=== PATIENT | female | born 1935 | race Caucasian/White ===

== ENCOUNTER → 2016-04-24 | Outpatient (CLI) | payer MEDICARE, OTHER | LOC: GMAL 11:05 | PROVIDERS: ATTEND Family Medicine | DX: D51.3 Other dietary vitamin B12 deficiency anemia (principal); D50.8 Other iron deficiency anemias; M10.9 Gout, unspecified ==

== ENCOUNTER → 2016-05-31 | Outpatient (CLI) | payer MEDICARE, OTHER | END | disposition home or self-care (01) | LOC: GMAL 14:22 | PROVIDERS: ATTEND Family Medicine | DX: D51.3 Other dietary vitamin B12 deficiency anemia (principal); D64.9 Anemia, unspecified ==

== ENCOUNTER → 2016-08-31 | Outpatient (CLI) | payer MEDICARE, OTHER ==
--- NOTE | 2016-08-31 13:53 | MAM ---
History: Well woman exam. Date of exam: 08/31/2016 Services provided: Bilateral full field digital screening mammography. CAD, the images were reviewed with R2 computer aided detection. FINDINGS: Glandular tissue is scattered glandular contour. Extensive secretory calcifications bilaterally. Study is compared with 2011 exam. Stable appearance to the glandular tissue. No dominant mass, architectural distortion or new clustered microcalcification. IMPRESSION: Benign exam Recommendation: Routine annual mammography BIRAD CATEGORY: 2 BENIGN Electronically signed by: Michelle Ritter MD 08/31/2016 1:54 PM CDT Workstation: [id number]
== END | disposition home or self-care (01) ==
LOC: MAMMO 09:31
PROVIDERS: ATTEND Family Medicine
DX: Z12.31 Encounter for screening mammogram for malignant neoplasm of breast (principal)

== ENCOUNTER → 2016-09-04 | Outpatient (CLI) | payer MEDICARE, OTHER | END | disposition home or self-care (01) | LOC: GMAL 10:58 | PROVIDERS: ATTEND Family Medicine | DX: D50.8 Other iron deficiency anemias (principal) ==

== ENCOUNTER → 2016-11-08 | Outpatient (CLI) | payer MEDICARE, OTHER | END | disposition home or self-care (01) | LOC: GMAL 14:07 | PROVIDERS: ATTEND Family Medicine | DX: D50.8 Other iron deficiency anemias (principal) ==

== ENCOUNTER → 2017-01-10 | Outpatient (CLI) | payer MEDICARE, OTHER | END | disposition home or self-care (01) | LOC: GMAL 12:49 | PROVIDERS: ATTEND Family Medicine | DX: R53.83 Other fatigue (principal); D50.8 Other iron deficiency anemias; E55.9 Vitamin D deficiency, unspecified ==

== ENCOUNTER → 2017-09-06 | Outpatient (CLI) | payer OTHER ==
--- NOTE | 2017-09-07 16:13 | MAM ---
EXAM DESCRIPTION: 3D Screening BILATERAL : Digital Mammography. CLINICAL HISTORY: 81 years Female SCREENING . No complaints. No family history breast cancer. Childbirth. Postmenopausal. No HRT. COMPARISON: 2-D digital screening bilateral study 08/31/2016.. Report from prior examination also reviewed. TECHNIQUE: Bilateral CC and MLO projection full-field images, 3-D tomosynthesis digital mammographic technique. CAD not utilized. FINDINGS: The breast parenchymal density pattern is: Scattered areas of fibroglandular density. No skin thickening or nipple retraction. Extensive secretory calcifications bilaterally. Bilateral vascular calcifications. Bilateral axillary lymph nodes and intramammary lymph node on the right. No focal, stellate mass or density, focal asymmetry , and no suspicious microcalcifications bilaterally. Stable mammograms compared to prior study, taking into account differences in mammographic technique IMPRESSION: BI-RADS CATEGORY: 2 - BENIGN FINDINGS. FOLLOW UP: Routine digital bilateral screening, one year interval from August 2017. Written communication explaining the IMPRESSION and follow-up, will be mailed to the patient and referring health care provider. According to the [employer], yearly mammograms are recommended starting at age 40 and continuing as long as a woman is in good health. Any breast change noted on a breast self-exam should be reported promptly to the patient's healthcare provider. Breast MRI is recommended for women with an approximately 20-25% or greater lifetime risk of breast cancer, including women with a strong family history of breast or ovarian cancer and women who have been treated for Hodgkin's disease. A negative mammographic report should not delay tissue diagnosis in patients with significant clinical history or physical findings. Extremely dense breast tissue limits the sensitivity of digital mammography. Electronically signed by: James Black MD 09/07/2017 4:12 PM CDT
== END ==
LOC: MAMMO 10:30
PROVIDERS: ATTEND Family Medicine
DX: Z12.31 Encounter for screening mammogram for malignant neoplasm of breast (principal)

== ENCOUNTER → 2018-09-19 | Outpatient (CLI) | payer OTHER ==
--- NOTE | 2018-09-20 12:33 | MAM ---
EXAM DESCRIPTION: 3D Screening BILATERAL : Digital Mammography. CLINICAL HISTORY: 82 years Female Screening . No complaints. No personal or family history of breast cancer. Childbirth. Childbirth. Postmenopausal unknown duration. No HRT. Lifetime risk of developing breast cancer (Tyrer-Cuzick model)(%): 1.3. COMPARISON: 2-D digital screening bilateral mammography 09/06/2017.. TECHNIQUE: Bilateral CC and MLO projection full-field images, digital tomosynthesis mammographic technique. Bilateral digital 2-D full-field MLO images. CAD not available for tomosynthesis or 2-D images. FINDINGS: Bilateral breast parenchymal density pattern is: Scattered areas of fibroglandular density. No skin thickening or nipple retraction. Bilateral axillary lymph nodes. Bilateral intramammary lymph nodes. Bilateral vascular calcifications. Multiple bilateral secretory type calcifications in the anterior half of both breasts. No new focal, stellate mass or density, focal asymmetry , and no suspicious microcalcifications bilaterally. Stable mammograms compared to prior study. IMPRESSION: Benign exam. BIRAD CATEGORY: 2 BENIGN FINDINGS. RECOMMENDATIONS: FOLLOW UP: Routine digital bilateral mammographic screening, one year interval from August 2018. Written communication explaining the IMPRESSION and follow-up, will be mailed to the patient and referring health care provider. According to the [employer], yearly mammograms are recommended starting at age 40 and continuing as long as a woman is in good health. Any breast change noted on a breast self-exam should be reported promptly to the patient's healthcare provider. Breast MRI is recommended for women with an approximately 20-25% or greater lifetime risk of breast cancer, including women with a strong family history of breast or ovarian cancer and women who have been treated for Hodgkin's disease. A negative mammographic report should not delay tissue diagnosis in patients with significant clinical history or physical findings. Extremely dense breast tissue limits the sensitivity of digital mammography. Electronically signed by: James Black MD 09/20/2018 12:31 PM CDT
== END ==
LOC: MAMMO 09:30
PROVIDERS: ATTEND Family Medicine
DX: Z12.31 Encounter for screening mammogram for malignant neoplasm of breast (principal)

== ENCOUNTER → 2018-11-13 | Outpatient (CLI) | payer OTHER | LOC: GMAL 10:32 | PROVIDERS: ATTEND Family Medicine | DX: M10.9 Gout, unspecified (principal); E10.9 Type 1 diabetes mellitus without complications; E78.49 Other hyperlipidemia; I12.9 Hypertensive chronic kidney disease with stage 1 through stage 4 chronic kidney disease, or unspecified chronic kidney disease; N18.3 Chronic kidney disease, stage 3 (moderate) ==

== ENCOUNTER → 2018-12-11 | Outpatient (CLI) | payer OTHER ==
--- NOTE | 2018-12-12 17:06 | MRI ---
EXAM DESCRIPTION: Lumbar Spine w/o Contrast : Magnetic Resonance Imaging. CLINICAL HISTORY: LOW BACK PAIN COMPARISON: LUMBAR TECHNIQUE: Multiplanar, multiple standard sequences, non contrast MRI, lumbar spine. FINDINGS: L5-S1: The disc is well visualized on axial T2 series 501, image 3. L5-S1: Disc desiccation and moderate disc space loss. Minimal posterior bulge. Thickening of the ligaments and hypertrophic changes in the facets with arthrosis more on the left. Mild canal narrowing. Mild right foraminal narrowing and moderate to severe left foraminal narrowing. Stable since the prior study. L4-L5: Disc desiccation with disc space loss posteriorly. Also left of midline with endplate reactive changes moderate. Disc spur complex encroaching on the left foramen which is almost stenotic. Grade 1 retrolisthesis 2 mm. This has progressed since the prior study. Arthrosis and hypertrophy on the left including the ligament. Posterior disc bulge. AP canal diameter 10 mm. Bilateral narrowing of the subarticular recesses abutting the bilateral L5 nerves. Mild narrowing of the right foramen. L3-L4: Disc desiccation and diffuse disc space loss and Schmorl's nodes in the endplates. Anterior bulging and spurs. Posterior bulging and 1 mm retrolisthesis. Bilateral hypertrophic facet arthrosis and thickening of the ligaments with AP canal diameter 8 mm. This has progressed since the prior study. Posterior midline disc osteophyte bulge 3 mm. Effacement of the bilateral subarticular recesses abutting the bilateral L4 nerves. This has progressed since the prior study. Mild right foraminal narrowing and moderate left foraminal narrowing. L2-L3: Disc desiccation and diffuse disc space loss with Schmorl's nodes noted endplate irregularities in the midline into the right of midline. Anterior disc bulge with endplate ridging. Posterior disc osteophyte bulge and grade 1 retrolisthesis 4 mm. Bilateral hypertrophic facet arthrosis and thickening of the ligaments. AP canal diameter 7.5 mm. This is resulting in bilateral subarticular recess stenosis abutting the bilateral descending L3 nerves. Progression since the prior study mild narrowing of the bilateral foramina more left than right. L1-L2: Disc desiccation and disc space loss with advanced endplate reactive changes in the midline and to the right of midline. This has progressed since the prior study. Anterior disc bulge and endplate ridging. Posterior disc bulge with endplate spur and 2 mm grade 1 retrolisthesis. Mild canal narrowing. Mild narrowing of the bilateral subarticular recesses. Moderate narrowing of the right foramen and mild narrowing of the left foramen. T12-L1: Disc desiccation anterior bulging and ridging. Endplate Schmorl's node in the midline. Trace retrolisthesis. Minimal posterior disc bulge. Canal is patent. Minimal hypertrophy of the bilateral ligaments. Mild right foraminal narrowing and left foramen patent. This is progressed since the prior study. Conus terminates posterior to L1 vertebral body. L1-L4 levoscoliosis has progressed since the prior study. Paravertebral soft tissues paraspinal muscle atrophy.. Distal cord normal signal and caliber. Posterior bulging of the T11-T12 disc is abutting the distal cord with canal nearly stenotic centrally. Otherwise normal marrow signal in the remaining vertebral bodies and the posterior elements. Vertebral bodies are not compressed at any level. IMPRESSION: 1. Multiple levels of spondylosis, disc space loss and disc desiccation, endplate reactive changes, retrolisthesis, facet hypertrophic arthrosis and posterior flavum ligament thickening. Also degenerative levoscoliosis has progressed at L1-L4. In general, progression of disease at every level since the prior study. 2. Borderline mild central canal stenosis L4-L5 with bilateral narrowing of the subarticular recesses abutting the bilateral L5 nerves. 3. Multifactorial mild to moderate central canal stenosis at L3-4 with effacement of the bilateral subarticular recesses abutting the bilateral L4 nerves. 4. Moderate central canal stenosis at L2-L3 is multifactorial with bilateral subarticular recess stenosis and possible encroachment bilateral descending L3 nerves. Electronically signed by: James Black MD 12/12/2018 5:01 PM CDT
== END ==
LOC: MRI 10:06
PROVIDERS: ATTEND Family Medicine
DX: M47.896 Other spondylosis, lumbar region (principal); M51.36 Other intervertebral disc degeneration, lumbar region; M43.16 Spondylolisthesis, lumbar region; M41.86 Other forms of scoliosis, lumbar region; M48.061 Spinal stenosis, lumbar region without neurogenic claudication

== ENCOUNTER → 2019-01-07 | Outpatient (CLI) | payer OTHER ==
--- NOTE | 2019-01-08 09:58 | RAD ---
EXAM DESCRIPTION: Barium Swallow: Rad-Fluoroscopy. CLINICAL HISTORY: Dysphagia COMPARISON: None TECHNIQUE: The patient swallowed barium pill with water. The patient swallowed gas-producing granules, water, and heavy density barium under fluoroscopic visualization. The images were obtained with the patient standing and horizontal.. Patient drank medium density barium through a straw in the semi-prone position. 63 fluoroscopic cine loop images. 14 static fluoroscopic images. Total fluoroscopy time was 2.8 minutes.. DAP: 11.1 Gy-cm2.. FINDINGS: The transit time for the barium pill to go from the oral pharynx to the distal esophagus was prolonged but aided with water ingestion. Most of the delay was in the distal esophagus. With barium, there was premature spillage into the bilateral vallecula and residual after swallowing. 3 swallows to empty the oral cavity. No laryngeal penetration or aspiration. Primary peristaltic wave terminated in the upper esophagus. Secondary and tertiary contractions noted in the proximal-mid, mid-, and distal esophagus. Transit time of barium in the proximal esophagus decreased with patient prone or supine. Marked gastroesophageal reflux above the thoracic inlet with patient prone and supine. Moderate narrowing of the distal esophagus. No mucosal lesions. Sliding small hiatal hernia. Included stomach and duodenum with no evidence of mass effect contrast extravasation or large mucosal abnormality. Surgical clips right upper quadrant. IMPRESSION: 1. Minimal abnormalities in the swallowing mechanism with no laryngeal penetration or aspiration. 2. Moderately poor esophageal motility with secondary and tertiary contractions in the proximal mid to distal esophagus and gastroesophageal reflux above the level of thoracic inlet. 3. Sliding hiatal hernia with no esophageal mucosal lesions. Electronically signed by: James Black MD 01/08/2019 9:57 AM CDT
== END ==
LOC: RAD 10:12
PROVIDERS: ATTEND Internal Medicine Gastroenterology
DX: R13.10 Dysphagia, unspecified (principal); K44.9 Diaphragmatic hernia without obstruction or gangrene

== ENCOUNTER → 2019-04-14 | Outpatient (CLI) | payer OTHER | LOC: GMAL 10:36 | PROVIDERS: ATTEND Family Medicine | DX: D51.3 Other dietary vitamin B12 deficiency anemia (principal); R53.83 Other fatigue; E55.9 Vitamin D deficiency, unspecified; N18.3 Chronic kidney disease, stage 3 (moderate); I10 Essential (primary) hypertension; E78.49 Other hyperlipidemia ==

== ENCOUNTER → 2019-04-25 | Outpatient (CLI) | payer OTHER ==
--- NOTE | 2019-04-25 19:38 | RAD ---
EXAM DESCRIPTION: Wrist,Right 3 Views: CR/DR/XR CLINICAL HISTORY: 83 years Female CLOSED FRACTURE RADIAL STYLOID RIGHT COMPARISON: None. TECHNIQUE: 3 VIEWS AP. Lateral. Oblique. Right wrist. FINDINGS: Decreased density of the right radial styloid with irregularity of the cortex at the base suggesting a nondisplaced or minimally displaced fracture. Fracture line appears to involve the radial scaphoid joint which is narrowed. Possible widening of the scapholunate joint. Overall bone density is decreased. Narrowing of the thumb carpometacarpal joint space, subchondral radiolucency and sclerosis, marginal spurs, and minimal radial subluxation of the thumb metacarpal. Small calcifications in the TFCC. Heterogeneous bone density loss in the wrist and proximal hand with subarticular bone density loss in the hand. IMPRESSION: Nondisplaced versus minimally displaced fracture of the base of the right ulnar styloid. Fracture line extends into the radial scaphoid joint which is narrowed. Possible widening of the scapholunate joint. Moderate arthrosis of the thumb carpometacarpal joint. Electronically signed by: James Black MD 04/25/2019 7:36 PM [facility]
== END ==
LOC: RAD 10:26
PROVIDERS: ATTEND Orthopaedic Surgery
DX: S52.514D Nondisplaced fracture of right radial styloid process, subsequent encounter for closed fracture with routine healing (principal)

== ENCOUNTER → 2019-08-28 | Outpatient (CLI) | payer OTHER ==
--- NOTE | 2019-08-29 09:40 | US ---
EXAM DESCRIPTION: Carotid Duplex: ULTRASOUND. CLINICAL HISTORY: 83 years Female OCCLUSION AND STENOSIS OF BILATERAL CAROTID ARTERIES COMPARISON: None. TECHNIQUE: Transcutaneous scanning utilizing yo-scale and Doppler modes to evaluate the bilateral carotid systems and vertebral arteries. Percentage of diameter of stenosis or no stenosis recorded will be based upon NASCET criteria. FINDINGS: Peak systolic/end diastolic (CM-Sec) CCA Right 65/12 Left 77/14. ICA Right proximal 101/24, mid 105/20. Left proximal 80/15, Distal 78/19. Vertebral Right 53/11 Left 67/13. ECA (PS Only) Right 142 left 123. ICA/CCA peak systolic ratio: Right 1.6 Left 1.0 ICA/CCA end diastolic ratio: Right 1.6 Left 1.1 Vertebral arteries: antegrade flow. Comments: Bilateral atherosclerotic calcification in the common carotid bifurcations and the proximal ICAs. Pectoral broadening in the proximal ICAs bilaterally. Right mid CCA bulb: Area stenosis 35% and diameter stenosis 56%. Proximal right ICA: Area stenosis 78% diameter stenosis 77%. Distal left CCA: Area stenosis 52% and diameter stenosis 54%. Proximal left ICA: Area stenosis 37% diameter stenosis 35%. IMPRESSION: 1. Doppler evaluation of the bilateral carotid systems and vertebral arteries shows hemodynamically significant stenosis of 77-78% proximal right ICA. Moderate stenosis but not critical in the distal left CCA. Correlate with clinical findings. If these findings are discordant with clinical findings, consider correlation with CTA of the carotid and vertebral vessels.. 2. Significant amount of plaque in the carotid arteries bilaterally. Bilateral vertebral arteries showed antegrade-cephalad flow. Electronically signed by: James Black MD 08/29/2019 9:39 AM CDT
== END ==
LOC: US 11:27
PROVIDERS: ATTEND Family Medicine
DX: I65.23 Occlusion and stenosis of bilateral carotid arteries (principal)

== ENCOUNTER → 2019-09-29 | Outpatient (CLI) | payer OTHER | LOC: GMAL 11:00 | PROVIDERS: ATTEND Family Medicine | DX: M10.9 Gout, unspecified (principal); R53.83 Other fatigue; E78.49 Other hyperlipidemia; Z79.899 Other long term (current) drug therapy ==